=== PATIENT | female | born 1975 | race Caucasian/White ===

== ENCOUNTER 2021-07-04 13:34 | Emergency (ER) | payer SELFPAY ==
[~2021-07-04] VITALS: Ht 167.6 cm; Wt 57.2 kg
[2021-07-04 14:02] VITALS: BP 101/72
[2021-07-04] MEDS ORDERED: IBUPROFEN 600 MG TABLET PO ONE (16:00)
[2021-07-04] MEDS ORDERED: IBUPROFEN 600 MG TABLET ONE (16:03)
== END 2021-07-04 17:41 | disposition home or self-care (01) ==
LOC: ER 13:38
DX: M25.511 Pain in right shoulder (principal); Z98.890 Other specified postprocedural states; W18.39XA Other fall on same level, initial encounter; Y93.89 Activity, other specified; Y92.89 Other specified places as the place of occurrence of the external cause; Y99.8 Other external cause status
CPT/HCPCS: 73030-TC